=== PATIENT | male | born 1975 | race Caucasian/White ===

== ENCOUNTER 2017-05-11 11:54 | Emergency (ER) | payer SELFPAY ==
[2017-05-11 11:58] VITALS: BP 132/93; BMI 31.4
--- NOTE | 2017-05-11 12:40 | DR.GENAD ---
HPI - PCP Primary Care Physician: HEMANTH - HPI Comment HPI Comment: PAIN IS NOT RESPONDING TO MEDS AT HOME. NO DYSURIA OR FEVER. - Complaint/Symptoms Chief Complaint Doctors Comments: LEFT FLANK PAIN TIME ONR WEEK. Chief Complaint:: PT. C/O LEFT FLANK PAIN AND LEFT SIDED BACK PAIN. PT. DESCRIBES THE PAIN A BURNING SENSATION. PAIN HAS BEEN GOING ON X 1 WEEK. PT. WENT TO [place] [facility] AND WAS TOLD HE HAD A PINCHED NERVE. HE HAS BEEN ON MUSCLE RELAXERS AND STERIOIDS WITH NO RELIEF. - Nurses notes reviewed Nurses Notes Review: Yes - Source History Provided: Patient - Mode of Arrival Mode of Arrival: Ambulatory - Timing Onset of Chief Complaint: 05/06/17 Came on: Suddenly - Duration Duration: Constant Duration: Days - Severity Severity: Moderate PMH - PMH Past Medical History: No Past Surgical History: Yes Surgical History: Ortho Surgery - Family History History of Family Medical Conditions: No - Social History Does patient currently use any type of tobacco product: Yes Have you used tobacco products in the last 12 months: Yes Type of Tobacco Use: Cigarettes Does any household member use tobacco: No Alcohol Use: None Do you use any recreational Drugs:: No Lives With: Spouse Lives Where: Home - infectious screening In the last 2 months have you had wt loss of >10#?: NO Have you had fever, night sweats or hemotysis?: No Have you traveled outside the country in the last 6 months?: No Isolation: Standard ROS - Review of Systems Constitutional: No Symptoms Reported. negative: Chills, Fever Eyes: No Symptoms Reported ENTM: No Symptoms Reported Respiratoy: No Symptoms Reported Cardiovascular: No Symptoms Reported Gastrointestinal/Abdominal: No Symptoms Reported Genitourinary: No Symptoms Reported Neurological: No Symptoms Reported Musculoskeletal: No Symptoms Reported, Other (LEFT FLANK PAIN.) Integumentary: No Symptoms Reported Hematologic/Lymphatic: No Symptoms Reported Endocrine: No Symptoms Reported All Other Systems: Reviewed and Negative PE - Vital Signs Vitals: Temperature 98.8 F Pulse Rate 96 Respiratory Rate 20 Blood Pressure 132/93 O2 Sat by Pulse Oximetry 98 - General Limitations: No Limitations General Appearance: Alert - Head Head Exam: Normal Inspection - Eyes Eye exam: Normal Appearance - ENT ENT Exam: Normal External Ear Exam External Ear Exam: Normal External Inspection TM/Canal Exam: Bilateral Normal Nose Exam: Sinus Tenderness Mouth Exam: Normal Inspection Throat Exam: Normal Inspection - Neck Neck Exam: Normal Inspection, Trachea Midline - Chest Chest Inspection: Symmetric Chest Wall Rise - Respiratory Respiratory Exam: Normal Lung Sounds Bilat Respiratory Exam: Bilateral Clear to Auscultation - Cardiovascular Cardiovascular Exam: Regular Rate, Normal Rhythm, Normal Heart Sounds - Abdominal Exam Abdominal Exam: Normal Bowel Sounds, Soft. negative: Tenderness - Extremities Extremities Exam: Normal Inspection - Back Back Exam: (L) CVA Tenderness - Neurologic Neurological Exam: Alert, Oriented X3 - Psychiatric Psychiatric Exam: Normal Affect, Normal Mood - Skin Skin Exam: Normal Color [facility] - Additional Information Additional Information Obtained From: Family - Differential Diagnosis Differential Diagnosis: UTI, KIDNEY STONE, MUSCULOSKELETAL PAIN Course - Treatment Treatment: SEE ORDERS. - Education/Counseling Education/Counseling: Patient, Education Educated On: Diagnosis, Needs for Follow Up ROR - Labs Reviewed Laboratory Results Reviewed?: Yes Result Diagrams: 05/11/17 12:50 05/11/17 12:50 Laboratory: WBC 13.3 X10^3/uL (3.6-10.0) H 05/11/17 12:50 RBC 5.61 X10^6/uL (4.7-6.0) 05/11/17 12:50 Hgb 13.9 g/dL (13.5-18.0) 05/11/17 12:50 Hct 42.6 % (42.0-54.0) 05/11/17 12:50 MCV 75.8 fL (80.0-100.0) L 05/11/17 12:50 MCH 24.8 pg (27.0-34.0) L 05/11/17 12:50 MCHC 32.8 g/dL (33.0-35.0) L 05/11/17 12:50 RDW 14.2 % (11.6-16.5) 05/11/17 12:50 Plt Count 328 X10^3/uL (150.0-450.0) 05/11/17 12:50 Plt Count Comment Adequate (ADEQUATE) 05/11/17 12:50 MPV 7.3 fL (7.4-11.0) L 05/11/17 12:50 Neut % 63.1 % (42.0-75.0) 05/11/17 12:50 Lymph % 23.3 % (21.0-51.0) 05/11/17 12:50 [place] % 7.2 % (0.0-13.0) 05/11/17 12:50 Eos % 5.6 % (0.9-2.9) H 05/11/17 12:50 Baso % 0.8 % (0.2-1.0) 05/11/17 12:50 Neut # 8.4 x10^3/uL (2.2-4.8) H 05/11/17 12:50 Lymph # 3.1 X10^3/uL (1.3-2.9) H 05/11/17 12:50 [place] # 1.0 x10^3/uL (0.3-0.8) H 05/11/17 12:50 Eos # 0.7 x10^3/uL (0.0-0.2) H 05/11/17 12:50 Baso # 0.1 X10^3/uL (0.0-0.1) 05/11/17 12:50 Absolute Nucleated RBC 0.1 /100WBC 05/11/17 12:50 Plt Morphology Comment Normal (NORMAL) 05/11/17 12:50 RBC Morphology Normal (NORMAL) 05/11/17 12:50 Sodium 139 mmol/L (136-145) 05/11/17 12:50 Corrected Sodium TNP 05/11/17 12:50 Potassium 4.2 mmol/L (3.5-5.1) 05/11/17 12:50 Chloride 101 mmol/L (98-107) 05/11/17 12:50 Carbon Dioxide 28.8 mmol/L (21-32) 05/11/17 12:50 BUN 17 mg/dL (7-18) 05/11/17 12:50 Creatinine 0.98 mg/dL (0.70-1.30) 05/11/17 12:50 Est GFR (MDRD) Af Amer > 60 (>60) 05/11/17 12:50 Est GFR (MDRD) Non-Af > 60 (>60) 05/11/17 12:50 Glucose 104 mg/dL (65-99) H 05/11/17 12:50 Calcium 9.2 mg/dL (8.5-10.1) 05/11/17 12:50 Corrected Calcium TNP 05/11/17 12:50 Total Bilirubin 0.30 mg/dL (0.2-1.0) 05/11/17 12:50 AST 22 Units/L (15-37) 05/11/17 12:50 ALT 53 Units/L (12-78) 05/11/17 12:50 Alkaline Phosphatase 87 Units/L (46-116) 05/11/17 12:50 Total Protein 7.5 g/dL (6.4-8.2) 05/11/17 12:50 Albumin 4.1 g/dL (3.4-5.0) 05/11/17 12:50 Globulin 3.4 g/dL (2.5-4.5) 05/11/17 12:50 Albumin/Globulin Ratio 1.2 Ratio (1.1-2.1) 05/11/17 12:50 Specimen Type Clean catch urine 05/11/17 12:41 Urine Color Yellow (YELLOW) 05/11/17 12:41 Urine Appearance Clear (CLEAR) 05/11/17 12:41 Urine pH 5.0 (5.0 - 8.0) 05/11/17 12:41 Ur Specific [place] 1.020 (1.000-1.030) 05/11/17 12:41 Urine Protein Negative (NEGATIVE) 05/11/17 12:41 Urine Glucose (UA) Negative (NEGATIVE) 05/11/17 12:41 Urine Ketones Negative (NEGATIVE) 05/11/17 12:41 Urine Occult Blood Negative (NEGATIVE) 05/11/17 12:41 Urine Nitrite Negative (NEGATIVE) 05/11/17 12:41 Urine Bilirubin Negative (NEGATIVE) 05/11/17 12:41 Urine Urobilinogen Normal (NORMAL) 05/11/17 12:41 Ur Leukocyte Esterase Negative (NEGATIVE) 05/11/17 12:41 Urine RBC 0-3 /HPF (NEGATIVE) 05/11/17 12:41 Urine WBC 0-3 /HPF (NEGATIVE) 05/11/17 12:41 Ur Squamous Epith Cells Rare /HPF (NEGATIVE) 05/11/17 12:41 Urine Bacteria Negative /HPF (NEGATIVE) 05/11/17 12:41 Ur Culture Indicated? No/not indicated 05/11/17 12:41 - XRAY XRAY Interpreted by: Radiologist XRAY Findings: REPORT DISCUSS WITH PATIENT. - Diagnosis Discharge Problem: Acute left flank pain Back pain Qualifiers: Back pain location: low back pain Chronicity: acute Back pain laterality: left Sciatica presence: without sciatica Qualified Code(s): M54.5 - Low back pain - Discharge Plan Disposition: 01 HOME, SELF-CARE Condition: Stable Prescriptions: Ketorolac Tromethamine [Toradol Tab] 10 mg PO Q8H PRN #20 tab PRN Reason: Pain - Follow ups/Referrals Follow ups/Referrals: [facility],None [Primary Care Provider] - 3 days - Instructions Instructions: Back Pain, Adult, [id number] Additional Instructions: RETURN TO ED IF WORSE
[2017-05-11] MEDS ORDERED: NORFLEX INJ IM ONE (12:41)
[2017-05-11] MEDS ORDERED: TORADOL 60 MG VIAL IM ONE (12:41)
[2017-05-11 12:54] LABS: BILIRUBIN,URINE NEGATIVE (NEGATIVE); BLOOD/HEMOGLOBIN,URINE NEGATIVE (NEGATIVE); GLUCOSE, URINE NEGATIVE (NEGATIVE); KETONES,URINE NEGATIVE (NEGATIVE); LEUKOCYTE ESTERASE ,URINE NEGATIVE (NEGATIVE); NITRITES,URINE NEGATIVE (NEGATIVE); PROTEIN,URINE NEGATIVE (NEGATIVE); UROBILINOGEN,URINE NORMAL (NORMAL)
[2017-05-11 13:01] LABS: BASOPHILS # (AUTO) 0.1 X10^3/uL (0.0-0.1); BASOPHILS % (AUTO) 0.8 % (0.2-1.0); EOSINOPHILS # (AUTO) 0.7 x10^3/uL (0.0-0.2); EOSINOPHILS % (AUTO) 5.6 % (0.9-2.9); HEMATOCRIT 42.6 % (42.0-54.0); HEMOGLOBIN 13.9 g/dL (13.5-18.0); LYMPHOCYTES # (AUTO) 3.1 X10^3/uL (1.3-2.9); LYMPHOCYTES % (AUTO) 23.3 % (21.0-51.0); MEAN CORPUSCULAR HEMOGLOBIN 24.8 pg (27.0-34.0); MEAN CORPUSCULAR HGB CONC 32.8 g/dL (33.0-35.0); MEAN CORPUSCULAR VOLUME 75.8 fL (80.0-100.0); MEAN PLATELET VOLUME 7.3 fL (7.4-11.0); MONOCYTES % (AUTO) 7.2 % (0.0-13.0); NEUTROPHILS # (AUTO) 8.4 x10^3/uL (2.2-4.8); NEUTROPHILS % (AUTO) 63.1 % (42.0-75.0); PLATELET COUNT 328 X10^3/uL (150.0-450.0); RED BLOOD COUNT 5.61 X10^6/uL (4.7-6.0); RED CELL DISTRIBUTION WIDTH 14.2 % (11.6-16.5); WHITE BLOOD COUNT 13.3 X10^3/uL (3.6-10.0)
[2017-05-11 13:04] LABS: APPEARANCE,URINE CLEAR (CLEAR); BACTERIA,URINE NEGATIVE /HPF (NEGATIVE); COLOR,URINE YELLOW (YELLOW); RBC,URINE 0-3 /HPF (NEGATIVE); SQUAMOUS EPITHELIAL CELL,UR RARE /HPF (NEGATIVE)
[2017-05-11] MEDS ORDERED: TORADOL 60 MG VIAL ONE (13:12)
[2017-05-11] MEDS ORDERED: NORFLEX INJ ONE (13:12)
[2017-05-11 13:13] LABS: ALANINE AMINOTRANSFERASE 53 Units/L (12-78); ALBUMIN 4.1 g/dL (3.4-5.0); ALKALINE PHOSPHATASE 87 Units/L (46-116); ASPARTATE AMINO TRANSFERASE 22 Units/L (15-37); BLOOD UREA NITROGEN 17 mg/dL (7-18); CALCIUM 9.2 mg/dL (8.5-10.1); CARBON DIOXIDE 28.8 mmol/L (21-32); CHLORIDE 101 mmol/L (98-107); CREATININE 0.98 mg/dL (0.70-1.30); PLATELET MORPHOLOGY COMMENT NORMAL (NORMAL); SODIUM 139 mmol/L (136-145); TOTAL PROTEIN 7.5 g/dL (6.4-8.2); eGFR BLACK RACES > 60 (>60); eGFR NON BLACK RACES > 60 (>60)
--- NOTE | 2017-05-11 13:19 | CT ---
HISTORY: Low back pain radiating to the groin Study: CT abdomen pelvis without contrast Comparison: None Technique: Axial noncontrast images with coronal and sagittal reformats. Dose reduction procedures we re used with mA/kv adjusted for body size. Findings: The lung bases are clear. The liver, spleen, adrenal glands, and pancreas are within normal limits to the limitations of an unenhanced examination. No opaque stones are visible within the gallbladder. T he kidneys are unobstructed and without stones. No ureteral calculi are identified. No intraperitonea l or retroperitoneal lymphadenopathy of significance is identified. The appendix is not identified wi th absolute certainty. There are no secondary signs of appendicitis present. There are no findings pedroza ggestive of diverticulitis or colitis. Examination of the pelvis demonstrated no evidence for pelvic masses, pelvic fluid, or pelvic lymphadenopathy. No bladder abnormality is identified. No lytic or bl astic skeletal lesions are identified. IMPRESSION: No evidence for obstructing renal or ureteral calculi No significant abnormality on unenhanced examination Reported By:
== END 2017-05-11 14:08 | disposition home or self-care (01) ==
LOC: ER 12:03
DX: R10.84 Generalized abdominal pain (principal); M54.5 Low back pain
CPT/HCPCS: 36415; 74176; 80053; 81001; 85025; 96372; 99282; 99283; J1885; J2360